=== PATIENT | male | born 1970 | race Two or more races ===

== ENCOUNTER 2024-03-15 04:32 | Emergency (ER) | payer MEDICAID, OTHER ==
[~2024-03-15] VITALS: Ht 175.3 cm; Wt 63.0 kg
[2024-03-15] MEDS: IBUPROFEN 600 MG TAB PO ONE (05:30)
[2024-03-15 06:37] LABS: COVID19 ANTIGEN SOFIA FIA NEGATIVE (NEGATIVE); Rapid Influenza A Negative (Negative); Rapid Influenza B Negative (Negative)
[2024-03-15] MEDS: ACETAMINOPHEN 325 MG TAB PO ONE (06:40)
--- NOTE | 2024-03-15 06:42 | ED.PDOC ---
History of Present Illness HPI Comments 53 y/o M presents with c/o low grade fever, wheezing, and nonproductive cough for 1xweek. He endorses on recent PNA Dx by his PCP 2x weeks ago. Denies having any additional symptoms at this time. Chief Complaint: Flu like Time Seen by MD: 06:15 Reviewed Notes: Nurses Notes, Medications, Allergies Allergies: Coded Allergies: NO KNOWN ALLERGIES (Unverified , 03/15/24) Information Source: Patient Mode of Arrival: Ambulatory Past Medical History PAST MEDICAL HISTORY: Denies Surgical History: Denies all surgeries Family History Family History: Unknown Social History Smoker: Non-Smoker Alcohol: Denies ETOH Use Drugs: Denies Drug Use Lives In: Home Constitutional: reports: fever Respiratory: reports: cough, wheezing All Other Systems: Reviewed and Negative (negative unless otherwise stated above or in HPI) Physical Exam General Appearance: No Apparent Distress, Normal HEENT: Normal ENT Inspection, Pharynx Normal, TMs Normal Neck: Full Range of Motion, Non-Tender, Normal, Normal Inspection Respiratory: Chest Non-Tender, Lungs Clear, No Accessory Muscle Use, No Re spiratory Distress, Normal Breath Sounds Cardiovascular: No Edema, No JVD, No Murmur, No Gallop, Normal Peripheral Pulses, Regular Rate/Rhythm Breast Exam: Deferred Gastrointestinal: No Organomegaly, Non Tender, No Pulsatile Mass, Normal Bowel Sounds, Soft Genitalia: Deferred Pelvic: Deferred Rectal: Deferred Extremities: No calf tenderness, Normal capillary refill, Normal inspection, Normal range of motion, Non-tender, No pedal edema Musculoskeletal : Apperance: Normal 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 Was a procedure done?: No Differential Dx Considerations may include: URI, PNA X-Ray, Labs, Meds, VS Vital Signs Date Time Temp Pulse Resp B/P (MAP) Pulse Ox O2 Delivery O2 Flow Rate FiO2 03/15/24 06:44 98.9 119 18 98/71 (80) 97 98.9 03/15/24 06:44 110 18 98 Room Air* 0 21 03/15/24 06:40 98.8 03/15/24 04:45 99.7 126 17 105/77 (86 96 Lab Test 03/15/24 04:59 Range/Units Influenza Type A Antigen Negative Negative Influenza Type B Antigen Negative Negative SARS-CoV-2 Antigen (Rapid) Negative NEGATIVE Current Medications Medications (Trade) Dose Ordered Sig/[place] Route Start Time Stop Time Status Last Admin Acetaminophen (Tylenol Tablet) 1,000 mg ONCE ONCE PO 03/15/24 05:30 03/15/24 05:31 DC 03/15/24 06:40 Time of 1ST Reevaluation: 06:45 Reevaluation 1ST: Unchanged Patient Education/Counseling: Diagnosis, Treatment, Prognosis, Need For Follow Up Family Education/Counseling: No Family Present Additional Information - The following tests were ordered, and results were reviewed by me: CXR, COVID19 TEST, INFLUENZA TEST - I reviewed and agreed with the following test results read by other provider: CXR - I discussed treatments and results with medical personnel Departure 1 Departure Time of Disposition: 08:35 Impression: Primary Impression: Viral URI Disposition: 01 HOME / SELF CARE / HOMELESS Condition: Good Discharged With: Self Critical Care Note Critical Care Time?: No Stability Stability form required: No Heart Score Heart Score: Heart Score Response (Comments) Value History N/A 0 EKG N/A 0 Age N/A 0 Risk Factors N/A 0 Troponin N/A 0 Total 0 I personally scribed for LUZ KYLE MD ([email or web address]) on 03/15/24 at 06:42. Electronically submitted by Misael Baltazar ([email or web address]). LUZ KYLE MD Mar 15, 2024 06:42
[2024-03-15 06:44] VITALS: PULSE 110; RESP 18; O2SAT 98
--- NOTE | 2024-03-15 07:55 | DVH ---
CHEST RADIOGRAPH Indication: FEVER Technique: Single frontal view of the chest was obtained COMPARISON: None FINDINGS: Lines and Tubes: None Lungs: Clear Pleura: No effusion. No pneumothorax. Cardiomediastinal contours: Unremarkable Bones: Unremarkable IMPRESSION: No acute disease.
[2024-03-15 08:35] VITALS: BP 105/65; PULSE 105; RESP 16; TEMP 98.4; O2SAT 98
== END 2024-03-15 08:43 | disposition home or self-care (01) ==
LOC: ER 04:32
DX: J06.9 Acute upper respiratory infection, unspecified (principal); B97.89 Other viral agents as the cause of diseases classified elsewhere; Z20.822 Contact with and (suspected) exposure to COVID-19
CPT/HCPCS: 36415; 71045; 87426; 87804